=== PATIENT | female | born 1965 | race Caucasian/White ===

== ENCOUNTER → 2016-12-05 | Outpatient (CLI) | payer OTHER ==
[~2016-12-05] MED LIST: ALBUTEROL2.5 MG/3 M NEB; ALLERGY10 M1 PO; ASPIRIN EC81 MG PO; CELEXA40 MG PO; CUBICIN 500 MG500 MG IV; CYCLOBENZAPRINE5 MG PO; FLONASE 0.05% N16 GM; HUMALOG100 UNIT/1 SQ; LANTUS100 UNIT/1 SQ; LOFIBRA160 MG PO; LYRICA100 MG PO; MORPHINE SULFAT15 M2 PO; MORPHINE SULFAT30 M4 PO; NEURONTIN800 MG PO; OXYCODONE HCL10 MG PO; PROTONIX 40 MG40 M1 PO; REQUIP1 MG PO; SINGULAIR10 MG PO; SYNTHROID50 MCG PO; TOPAMAX25 MG PO; TRAZODONE HCL150 MG PO; TUDORZA PRESS400 MCG INH; VENTOLIN HFA8 GM INH; VOLTAREN100 GM TOP; XANAX0.5 MG PO
== END ==
LOC: KOH-I 12:32
DX: M50.30 Other cervical disc degeneration, unspecified cervical region (principal); M54.6 Pain in thoracic spine; M54.5 Low back pain; M47.812 Spondylosis without myelopathy or radiculopathy, cervical region
CPT/HCPCS: 72050; 72070; 72110

== ENCOUNTER 2016-12-22 21:51 | Emergency (ER) | payer OTHER ==
[2016-12-22 23:11] LABS: RED BLOOD COUNT 5.18 M/UL (4.00-5.10); WHITE BLOOD COUNT 13.6 K/UL (4.5-11.0)
[2016-12-22 23:29] LABS: BUN/CREATININE RATIO 19 (0-10)
== END 2016-12-23 01:46 | disposition home or self-care (01) ==
LOC: ER1 21:51
PROVIDERS: Physician Assistant
DX: N30.90 Cystitis, unspecified without hematuria (principal); E11.65 Type 2 diabetes mellitus with hyperglycemia; I10 Essential (primary) hypertension; J44.9 Chronic obstructive pulmonary disease, unspecified; F17.210 Nicotine dependence, cigarettes, uncomplicated; Z79.82 Long term (current) use of aspirin
CPT/HCPCS: 36415; 80053; 81001; 82962; 83605; 83690; 84484; 85025; 87077; 87086; 87186; 96361; 96372; 96374; 96375; 96376; 99284; J0696; J1815; J1885; J2270; J2405; J7030; J7050

== ENCOUNTER → 2021-07-20 | Day surgery (SDC) | payer OTHER | END | disposition home or self-care (01) | LOC: OR 09:00 | DX: M51.16 Intervertebral disc disorders with radiculopathy, lumbar region (principal); E11.65 Type 2 diabetes mellitus with hyperglycemia; I10 Essential (primary) hypertension; E78.00 Pure hypercholesterolemia, unspecified; J44.9 Chronic obstructive pulmonary disease, unspecified; Z53.8 Procedure and treatment not carried out for other reasons; Z20.822 Contact with and (suspected) exposure to COVID-19 | CPT/HCPCS: 82962; J1040; Q9967 ==